=== PATIENT | female | born 1965 | race African-American/Black ===

== ENCOUNTER 2022-01-01 11:22 | Outpatient (CLI) | payer OTHER | END 2022-01-01 11:46 | disposition home or self-care (01) | LOC: LAB 11:22 | DX: N39.0 Urinary tract infection, site not specified (principal) ==

== ENCOUNTER 2025-02-26 12:44 | Emergency (ER) | payer OTHER ==
[~2025-02-26] VITALS: Ht 172.7 cm; Wt 74.8 kg
[2025-02-26] MEDS ORDERED: AMBIEN10 MG PO (12:55)
[2025-02-26] MEDS ORDERED: DOTTI1 EAC4 TD (12:56)
[2025-02-26] MEDS ORDERED: DIPHENHYDRAMINE HCL 50 MG/ML VIAL 1ML ONE (13:05)
[2025-02-26] MEDS ORDERED: METHYLPREDNISOLONE SOD SUCC 40 MG VIAL ONE (13:05)
[2025-02-26] MEDS ORDERED: METHYLPREDNISOLONE SOD SUCC 125 MG VIAL IV STA (13:10)
[2025-02-26] MEDS ORDERED: DIPHENHYDRAMINE HCL 50 MG/ML VIAL 1ML IV STA (13:10)
[2025-02-26] MEDS ORDERED: FAMOTIDINE/PF 20 MG/2 ML VIAL ONE (13:15)
[2025-02-26] MEDS ORDERED: 0.9 % SODIUM CHLORIDE 500 ML IV STA (13:15)
[2025-02-26] MEDS ORDERED: ONDANSETRON HCL 2 MG/ML VIAL ONE (13:15)
[2025-02-26] MEDS ORDERED: FAMOTIDINE/PF 20 MG in 0.9 % SODIUM CHLORIDE 8 ML IV PUSH STA (13:25)
[2025-02-26] MEDS ORDERED: ONDANSETRON HCL 2 MG/ML VIAL IV ONE (13:30)
[2025-02-26 16:57] LABS: BASO % 0.1 % (0.1-1.2); EOS # 0.00 (0.04-0.54); EOS % 0.0 % (0.7-7.0); LYMPH # 0.78 (1.18-3.74); LYMPH % 8.0 % (19.3-53.1); MEAN PLATELET VOLUME 8.90 fl (9.4-12.4); MONO # 0.04 (0.24-0.82); MONO % 0.4 % (4.7-12.5); NEUT # 8.95 (1.56-6.13); NEUT % 91.2 % (34.0-71.1); RED CELL DISTRIBUTION WIDTH 11.9 % (11.6-14.4)
[2025-02-26 17:23] LABS: INR 1.04
[2025-02-26 17:25] LABS: BUN CREA RATIO 18.0 (7.0-25.0); CREATININE SERUM 0.62 mg/dL (0.55-1.02); GFR 97.86; GLUCOSE FASTING 132.0 mg/dL (65-100); OSMOLALITY SERUM 279.0 MOSM/KG (275-295)
[2025-02-26] MEDS ORDERED: PEPCID AC20 MG PO (20:43)
[2025-02-26] MEDS ORDERED: PRILOSEC OTC20 MG PO (20:43)
== END 2025-02-27 01:05 | disposition home or self-care (01) ==
LOC: ER 12:44
PROVIDERS: General Practice
DX: K20.90 Esophagitis, unspecified without bleeding (principal); T78.40XA Allergy, unspecified, initial encounter; R21 Rash and other nonspecific skin eruption; Z91.013 Allergy to seafood